=== PATIENT | male | born 1945 | race Caucasian/White ===

== ENCOUNTER 2018-01-11 18:12 | Inpatient (IN) | payer OTHER ==
--- NOTE | 2018-01-11 18:26 | EDPHY ---
H & P Stated Complaint: Abdominal pain Time Seen by Provider: 01/11/18 18:25 HPI/ROS: CHIEF COMPLAINT: Acute abdominal pain and vomiting HISTORY OF PRESENT ILLNESS: The patient presents the ED with 3 hr of acute abdominal pain and vomiting. The patient characterizes his pain as being generalized. He has no prior history of the symptoms. He denies prior history of abdominal surgery. The patient does have a history of coronary artery disease status post CABG and tricuspid valve replacement. The patient is currently anticoagulated with Coumadin. The patient does have a lower inguinal hernia. The patient denies any fever, cough or congestion. The patient denies radiation of his pain to the back shoulder or jaw. REVIEW OF SYSTEMS: A comprehensive 10 point review of systems is otherwise negative aside from elements mentioned in the history of present illness. Source: Patient - Personal History Current Tetanus/Diphtheria Vaccine: No Current Tetanus Diphtheria and Acellular Pertussis (TDAP): No - Medical/Surgical History Hx Asthma: No Hx Chronic Respiratory Disease: No Hx Diabetes: No Hx Cardiac Disease: Yes Hx Renal Disease: Yes Hx HIV/AIDS: No Hx Splenectomy or Spleen Trauma: No Other PMH: quadruple bypass hernan 11/25, 10/26 tricuspid , pacer/defib, afib - Social History Smoking Status: Never smoked - Physical Exam Exam: General Appearance: Alert, mild discomfort Eyes: Pupils equal and round no pallor or injection ENT, Mouth: Mucous membranes moist Respiratory: There are no retractions, lungs are clear to auscultation Cardiovascular: Regular rate and rhythm Gastrointestinal: Tenderness to palpation in the mid abdomen and greatest tenderness is appreciated in the right upper quadrant Neurological: A&O, normal motor function, normal sensory exam, normal cranial nerves Skin: Warm and dry, no rashes Musculoskeletal: Neck is supple nontender Extremities: symmetrical, full range of motion Constitutional: Initial Vital Signs Temperature (C) 36.6 C 01/11/18 18:16 Heart Rate 76 01/11/18 18:16 Respiratory Rate 16 01/11/18 18:16 Blood Pressure 133/89 H 01/11/18 18:16 O2 Sat (%) 94 01/11/18 18:16 O2 Delivery Mode Room Air Allergies/Adverse Reactions: No Known Allergies Allergy (Unverified 01/11/18 18:16) Home Medications: Medication Instructions Recorded Lasix 01/11/18 Lasix 01/11/18 Spironolactone 01/11/18 Warfarin Sodium 01/11/18 Medical Decision Making - Diagnostics EKG Interpretation: EKG: Complete interpretation has been separately recorded in the [email or web address] archive. Summary impression: Paced rhythm, rate 78 Imaging Results: Imaging Impressions Abdomen Ultrasound 01/11/18 18:40 Impression: 1. Cholelithiasis with multiple gallstones and circumferential gallbladder wall thickening consistent with acute cholecystitis. 2. No biliary ductal dilation. 3. Hepatomegaly and hepatic steatosis with a simple 1.5 cm cyst in the left lobe of liver. 4. Right pleural effusion. Findings and recommendations discussed with Emergency Department physician, Bjorn De La Fuente at 19:17 hour, 01/11/2018. Final report concurs with initial preliminary interpretation. ED Course/Re-evaluation: The patient presents to the ED with acute right upper quadrant pain and vomiting that began earlier today. The patient had an IV established. He received 4 mg of IV morphine and 4 mg of IV Zofran. Bedside ultrasound does demonstrate likely cholecystitis. The patient was taken for a formal ultrasound which confirms this diagnosis. The received IV Unasyn in the emergency department. The patient is noted to have relatively normal liver function test aside from a slightly elevated alkaline phosphatase. The patient's INR is currently 2.48. His creatinine is 2. The patient tells me he has a history of chronic renal insufficiency. Consultation was made with Dr. Aguila from the surgery service. The patient will be admitted by Medicine. He will be not be taken to the operating room awaiting some correction in his INR. He was given 5 mg of vitamin K subcutaneously in the emergency department. Consultation was made with Dr. Kayy Brewer from the Internal Medicine service. She will admit the patient this evening. I re-evaluated the patient at 7:30 p.m. and reviewed his laboratory testing and ultrasound. His vomiting has resolved. He is feeling much more comfortable. He still continues to have right upper quadrant tenderness. Differential Diagnosis: Differential diagnosis considered includes cholecystitis, pancreatitis, peptic ulcer disease, gastroenteritis, perforation, obstruction, appendicitis - Data Points Laboratory Results: Laboratory Results 01/11/18 18:30 01/11/18 18:30 01/11/18 01/11/18 01/11/18 18:30 18:30 18:30 WBC 9.02 10^3/uL 10^3/uL (3.80-9.50) RBC 3.60 10^6/uL L 10^6/uL (4.40-6.38) Hgb 10.4 g/dL L g/dL (13.7-17.5) Hct 32.3 % L % (40.0-51.0) MCV 89.7 fL fL (81.5-99.8) MCH 28.9 pg pg (27.9-34.1) MCHC 32.2 g/dL L g/dL (32.4-36.7) RDW 17.9 % H % (11.5-15.2) Plt Count 178 10^3/uL 10^3/uL (150-400) MPV 8.6 fL L fL (8.7-11.7) Neut % (Auto) 80.1 % H % (39.3-74.2) Lymph % (Auto) 10.0 % L % (15.0-45.0) Archuleta % (Auto) 7.9 % % (4.5-13.0) Eos % (Auto) 1.3 % % (0.6-7.6) Baso % (Auto) 0.3 % % (0.3-1.7) Nucleat RBC Rel Count 0.0 % % (0.0-0.2) Absolute Neuts (auto) 7.22 10^3/uL H 10^3/uL (1.70-6.50) Absolute Lymphs (auto) 0.90 10^3/uL L 10^3/uL (1.00-3.00) Absolute Monos (auto) 0.71 10^3/uL 10^3/uL (0.30-0.80) Absolute Eos (auto) 0.12 10^3/uL 10^3/uL (0.03-0.40) Absolute Basos (auto) 0.03 10^3/uL 10^3/uL (0.02-0.10) Absolute Nucleated RBC 0.00 10^3/uL 10^3/uL (0-0.01) Immature Gran % 0.4 % % (0.0-1.1) Immature Gran # 0.04 10^3/uL 10^3/uL (0.00-0.10) PT 26.8 SEC H SEC (12.0-15.0) INR 2.48 H (0.83-1.16) Sodium 137 mEq/L mEq/L (135-145) Potassium 3.6 mEq/L mEq/L (3.3-5.0) Chloride 92 mEq/L L mEq/L (97-110) Carbon Dioxide 30 mEq/l mEq/l (22-31) Anion Gap 15 mEq/L mEq/L (8-16) BUN 83 mg/dL H mg/dL (7-23) Creatinine 2.1 mg/dL H mg/dL (0.7-1.3) Estimated GFR 31 Glucose 110 mg/dL H mg/dL (70-100) Calcium 9.7 mg/dL mg/dL (8.5-10.4) Total Bilirubin 1.1 mg/dL mg/dL (0.1-1.4) Conjugated Bilirubin 0.6 mg/dL H mg/dL (0.0-0.5) Unconjugated Bilirubin 0.5 mg/dL mg/dL (0.0-1.1) AST 39 IU/L IU/L (17-59) ALT 34 IU/L IU/L (21-72) Alkaline Phosphatase 170 IU/L H IU/L (38-126) POC Troponin I Total Protein 7.6 g/dL g/dL (6.3-8.2) Albumin 4.4 g/dL g/dL (3.5-5.0) Lipase 152 IU/L IU/L (23-300) 01/11/18 18:28 WBC RBC Hgb Hct MCV MCH MCHC RDW Plt Count MPV Neut % (Auto) Lymph % (Auto) Archuleta % (Auto) Eos % (Auto) Baso % (Auto) Nucleat RBC Rel Count Absolute Neuts (auto) Absolute Lymphs (auto) Absolute Monos (auto) Absolute Eos (auto) Absolute Basos (auto) Absolute Nucleated RBC Immature Gran % Immature Gran # PT INR Sodium Potassium Chloride Carbon Dioxide Anion Gap BUN Creatinine Estimated GFR Glucose Calcium Total Bilirubin Conjugated Bilirubin Unconjugated Bilirubin AST ALT Alkaline Phosphatase POC Troponin I 0.01 ng/mL ng/mL (0.00-0.08) Total Protein Albumin Lipase Medications Given: Discontinued Medications Morphine Sulfate (Morphine) 4 mg IVP EDNOW ONE Stop: 06/03/18 18:35 Last Admin: 01/11/18 18:38 Dose: 4 mg Ondansetron HCl (Zofran) 4 mg IVP EDNOW ONE Stop: 01/11/18 18:35 Last Admin: 01/11/18 18:38 Dose: 4 mg Point of Care Test Results: Chemistry 01/11/18 18:28 POC Troponin I 0.01 ng/mL ng/mL (0.00-0.08) Departure - Departure Disposition: [facility] Inpatient Acute Clinical Impression: Acute cholecystitis, Renal insufficiency, Coronary artery disease, Anticoagulated on Coumadin, Right upper quadrant pain Condition: Fair Referrals: NONE *PRIMARY CARE P,. [Primary Care Provider] - As per Instructions
--- NOTE | 2018-01-11 18:31 | CPEKG ---
Heart Rate: 78 RR Interval: 769 P-R Interval: 182 QRSD Interval: 132 QT Interval: 440 QTC Interval: 502 P Damascus: 0 QRS [place]: -80 T Wave Damascus: 90 EKG Severity - ABNORMAL ECG - EKG Impression: ATRIAL-VENTRICULAR DUAL-PACED RHYTHM Electronically Signed By: Bjorn De La Fuente 11-Jan-2018 21:12:27
[2018-01-11] MEDS ORDERED: ONDANSETRON 4 MG/2 ML VIAL IVP ONE (18:34)
[2018-01-11 18:36] LABS: PLATELET COUNT 178 10^3/uL (150-400)
[2018-01-11 18:44] LABS: INR 2.48 (0.83-1.16); PROTIME(PATIENT) 26.8 SEC (12.0-15.0)
[2018-01-11] MEDS ORDERED: ONDANSETRON DISINTEGRATING 4 MG TAB ONE (18:51)
[2018-01-11] MEDS ORDERED: AMPICILLIN/SULBACTAM 3 GM in NS 100 ML IV ONE (19:18)
[2018-01-11] MEDS ORDERED: PHYTONADIONE 10 MG/ML AMP SC ONE (19:30)
[2018-01-11] MEDS ORDERED: NS 1,000 ML IV ONE (19:32)
[2018-01-11] MEDS ORDERED: PHYTONADIONE 5 MG in NS 50 ML IV ONE (19:45)
[2018-01-11] MEDS ORDERED: 1/2 NS 1,000 ML IV SCH (20:15)
[2018-01-11] MEDS ORDERED: HYDROmorphONE/DILAUDID 1 MG/ML INJ IVP PRN (20:19)
[2018-01-11] MEDS ORDERED: ONDANSETRON 4 MG/2 ML VIAL IVP PRN (20:19)
[2018-01-11] MEDS ORDERED: PROMETHAZINE HCL 25 MG/ML INJ IVP PRN (20:19)
--- NOTE | 2018-01-11 20:54 | GHP ---
[f rep st] HISTORY AND PHYSICAL DATE OF ADMISSION: 01/11/2018 CHIEF COMPLAINT: Right upper quadrant pain. HISTORY: The patient is a 72-year-old male who had acute onset of right upper quadrant pain at 1 p.m . this afternoon. He is in town visiting from [place]. They were at a restaurant at [facility] when he suddenly started not feeling well. He developed severe right upper quadrant pain with tena sea and vomiting. It escalated, and he presented to the emergency room. He has never had pain in hi s right upper quadrant before. He denies any fever. PAST MEDICAL HISTORY: 1. Coronary artery disease, status post CABG 1 year ago. 2. Tricuspid valve replacement 2 months ago. 3. Pacemaker and AICD. 4. Atrial fibrillation. 5. Chronic kidney disease. 6. Obstructive sleep apnea, on CPAP. MEDICATIONS: Please see computer's record for full details. ALLERGIES: No known drug allergies. SOCIAL HISTORY: Quit smoking 45 years ago. No alcohol. He is visiting from [place]. His daughter lives here locally, currently staying at the [facility]. Plan was to fly home tomorrow. They just arr ived on Friday. REVIEW OF SYSTEMS: Complete review of systems obtained. Review of systems negative regarding consti tutional, HEENT, GI, pulmonary, cardiovascular, , hematology, skin, muscular, endocrine, psych, exc ept for positives and negatives as noted in HPI. FAMILY HISTORY: Reviewed, noncontributory to presenting complaint. PHYSICAL EXAMINATION: GENERAL: Well-developed, well-nourished male in no acute distress. VITAL SIG NS: Temperature is 36.6, pulse 78, blood pressure 137/94, satting 98% on room air. EYES: Normal co njunctivae. Pupils react to light. ENT: Normal ears and nose. Hearing intact. Normal teeth. Tory pharynx moist. NECK: Trachea midline. No thyromegaly. CHEST: Normal effort. Lungs clear to ausc ultation bilaterally. CARDIOVASCULAR SYSTEM: Regular rate, rhythm. No murmur. No extremity edema. ABDOMEN: Soft, very tender to the right upper quadrant. No hepatosplenomegaly. SKIN: Warm, dry, intact without rash. MUSCULOSKELETAL: No cyanosis or clubbing. Strength 5/5 upper and lower extre mities. NEURO: Cranial nerves intact. Normal sensation to light touch. PSYCH: Alert and oriented x3. Normal affect. Normal judgment and insight. Normal memory. LABORATORIES: White count 9.02, hematocrit 32.3, platelets 178. Sodium 137, potassium 3.6, chloride 92, bicarb 30, BUN 83, creatinine 2.1, glucose 110. LFTs are negative. Troponins negative. INR is 2.48. EKG is paced rhythm. Ultrasound consistent with acute cholecystitis. The case was discussed with Dr. Hosea De La Fuente in the emergency room. He has spoken with Dr. Aguila and plans for surgery tomorrow if the INR is down. ASSESSMENT AND PLAN: 1. Acute cholecystitis. Surgery tomorrow morning with Dr. Aguila. Will make him nothing by carla th after midnight. 2. Atrial fibrillation. Warfarin will need to be reversed for surgery. He received vitamin K in th e emergency room. Will recheck an INR in the morning. If his INR is not at goal, he should be admin istered fresh frozen plasma. 3. Chronic kidney disease. He reports his baseline creatinine is in the high 1's ever since his car diac surgeries. Will hold Lasix tonight, but will need to be resumed postoperatively. 4. Coronary artery disease, status post coronary artery bypass graft 1 year ago. He has not had any recurrence of symptoms since his coronary artery bypass graft. I think he is okay to proceed with o peration. 5. Tricuspid valve replacement recently, 2 months ago. 6. Left breast fullness. He does have a left breast mass which he says he has noticed only over the last month. He has not gotten this evaluated yet in [place]. I do note that he is on spironolacton e so it may be gynecomastia, although it is only unilateral. I recommended he follow up with this wh en he returns to his usual physicians in [place]. Biopsy may be indicated. 7. Pacemaker and automatic implantable cardioverter-defibrillator. Appears to be functioning okay, currently in a paced rhythm. 8. Obstructive sleep apnea. Continue continuous positive airway pressure at bedtime. CODE STATUS: Full. ADMISSION STATUS: Will admit to inpatient. I anticipate greater than 2 midnights required. DEEP VENOUS THROMBOSIS PROPHYLAXIS: He is low risk given his chronic anticoagulation. Anticoagulati on can be resumed postoperatively. /[id number]/MODL
--- NOTE | 2018-01-11 20:59 | GCON ---
[f rep st] CONSULTATION DATE OF CONSULTATION: 01/11/2018 CHIEF COMPLAINT: Right upper quadrant pain with nausea and vomiting. HISTORY OF PRESENT ILLNESS: This is a 72-year-old male visiting in town from [place], who was i n his usual state of health, ate dinner last night, had breakfast this morning, was walking on [employer], walked about half a block, began to have progressive right upper quadrant pain associated wit h nausea. Describes the pain as upset stomach, points to the right upper quadrant. States that it o ccasionally radiates to his back. At its worst intensity is 5/10. It has been associated with nause a and vomiting. He denies having any fevers or chills. He has never had any complications or issues like this in the past. Of note, the patient is status post redo CABG in December of this year for a tric uspid valve repair. The patient had his initial CABG in 2016 for a quadruple bypass and is currently on Coumadin for atrial fibrillation. PAST MEDICAL HISTORY: CABG x2, first in November 2016 for quadruple bypass, most recent December of 2017 for tricuspid valve repair, has a pacemaker, and has atrial fibrillation. PAST SURGICAL HISTORY: As above, CABG x2. No abdominal surgeries. CURRENT MEDICATIONS: Include Lasix, spironolactone, and warfarin. ALLERGIES: None. FAMILY HISTORY: Noncontributory. 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 Denies illicit drug use. is at bedside. Family li ves in [facility]. REVIEW OF SYSTEMS: A full 10-point review was performed. PHYSICAL EXAMINATION: VITAL SIGNS: Temperature 36.6, blood pressure 128/94, heart rate 73, and he i s 94% on room air. CONSTITUTIONAL: He appears comfortable. He is in no acute distress. EYES: His pupils are equal, round, and reactive to light and accommodation. He has anicteric sclerae. His ex traocular movements are intact. EARS, NOSE, MOUTH, THROAT: He has moist mucous membranes. His hear ing is normal. His ears appear normal. He has no oral mucosal ulcers and has normal dentition. CAR DIOVASCULAR: The patient is paced in a normal rhythm without any appreciable murmurs. His midline s ternotomy scar is well healed. RESPIRATORY: No respiratory distress, rales, or rhonchi. He is othe rwise clear to auscultation bilaterally. GI: He has hypoactive bowel sounds. He is tender to palpa tion in the right upper quadrant with a positive Camp sign. He has no rebound tenderness or guardi ng. SKIN: Warm, normal color, no rashes. He does have a stitch abscess in his right chest secondar y to a tunneled line, which was there from his previous surgery. The remainder is unremarkable. MUS CULOSKELETAL: Full strength, no tenderness, normal joint range of motion. No effusions. NEUROLOGIC : He is alert and oriented x3. His cranial nerves 2-12 are intact. He has no weakness, no numbness . PSYCH: He is interacting appropriately. He is not anxious or encephalopathic. LYMPHATIC/HEMATOL OGIC/IMMUNOLOGIC: No cervical, groin, or supraclavicular lymphadenopathy is appreciated. LABORATORY DATA: White blood cell count is normal at 9. He does, however, have 80% neutrophils. H and H are low at 10 and 32. Platelets are 178. Chemistry is significant for an elevated creatinine at 2.1 and an elevated glucose at 110, an elevated conjugated bilirubin of 0.6, and an elevated alkal ine phosphatase at 170. His INR today is 2.48 with a PT of 26.8. Right upper quadrant ultrasound th e images of which were personally reviewed, reveal multiple layering gallstones within the gallbladde r with a thickened gallbladder wall. No pericholecystic fluid. No biliary ductal dilatation identif ied. ASSESSMENT AND PLAN: 72-year-old anticoagulated male with cholecystitis. Clinically the patient is doing well after receiving medication. He is afebrile and his white count is normal. He is, however , persistently tender in the right upper quadrant. Plan will be for admission to the medical service for gentle hydration to improve his creatinine as well as reversal of his coagulopathy given his jesica vated INR at 2.48. He has already received vitamin K in the emergency department. The patient will be n.p.o. at midnight for planned laparoscopic cholecystectomy once medically optimized likely tomorr ow. I have discussed the procedure in detail with him and his . Explained the risks, benefits, and alternatives, and he wishes to proceed. /[id number]/MODL
[2018-01-11] MEDS: CARVEDILOL 3.125 MG TAB PO SCH (21:23)
[2018-01-12 03:47] LABS: INR 2.08 (0.83-1.16); PROTIME(PATIENT) 23.4 SEC (12.0-15.0)
[2018-01-12] MEDS ORDERED: PHYTONADIONE 5 MG in NS 50 ML IV ONE (06:41)
--- NOTE | 2018-01-12 08:25 | PDMN ---
Medical Necessity Medical necessity: est los>2mn for acute cholecystitis w/RUQ pain, N/V afib on anticoagulation w/INR 2.48; admit for lap kayden 01/12/18 after reversal of warfarin; comorbid CKD w/creat 2.1 (baseline high 1's), CAD s/p CABG, recent TVR , SUSANA, PPM/AICD; [place]; per order and H&P 01/11/18
--- NOTE | 2018-01-12 08:29 | HOSPPROG ---
Hospitalist Progress Note Assessment/Plan: # acute cholecystitis - agree with cholecystectomy today - cont rocephin and flagyl # coagulopathy - received vit K 5mg last night, another 5mg this am - recheck INR before surgery # CAD s/p CABG x 1 year - stable for surgery - cont coreg # AICD/PPM # TVR # a-fib - holding Coumadin nurys-operatively - cont coreg # CKD - baseline per his report - recheck tomorrow # normocytic anemia - suspect baseline, follow post-op # SUSANA - CPAP # L breast fullness - plans f/u in [place] Subjective: pain better today; has not eaten Objective: Vital Signs Temp Pulse Resp BP Pulse Ox 36.4 C 75 19 104/74 94 01/12/18 07:33 01/12/18 07:33 01/12/18 07:33 01/12/18 07:33 01/12/18 07:33 Laboratory Results 01/12/18 03:16 01/11/18 01/12/18 01/13/18 05:59 05:59 05:59 Intake Total 1350 600 Output Total 1150 300 Balance 200 300 PT 23.4 SEC (12.0-15.0) H 01/12/18 03:16 INR 2.08 (0.83-1.16) H 01/12/18 03:[address] Aguila US reviewed ECG personally reviewed - Physical Exam Constitutional: no apparent distress, appears nourished Cardiovascular: regular rate and rhythym, systolic murmur, No irregularly irregular, No diastolic murmur Respiratory: no respiratory distress, no rales or rhonchi, clear to auscultation Gastrointestinal: soft, non-tender abdomen, No qureshi's sign, No guarding, No rebound, No distension ICD10 Worksheet Patient Problems: Problems Problem Status Onset Acute cholecystitis Acute Renal insufficiency Acute Coronary artery disease Acute Anticoagulated on Coumadin Acute Right upper quadrant pain Acute
[2018-01-12] MEDS: CARVEDILOL 3.125 MG TAB PO SCH ×2 (08:56→21:23)
[2018-01-12] MEDS: ATORVASTATIN CALCIUM 20 MG TAB PO SCH (08:56)
--- NOTE | 2018-01-12 09:24 | SOAPPROG ---
ALEX Progress Note Assessment/Plan: Assessment: 72 yo c cholecystitis - VSS, HDS - abdominal exam benign - INR is stil high, giving more Vit K now. Will type and cross - OR today Plan: 01/12/18 09:23 Subjective: feels much better Objective: Vital Signs Temp Pulse Resp BP Pulse Ox 36.4 C 75 19 104/74 94 01/12/18 07:33 01/12/18 07:33 01/12/18 07:33 01/12/18 07:33 01/12/18 07:33 Laboratory Results 01/12/18 03:16 01/11/18 01/12/18 01/13/18 05:59 05:59 05:59 Intake Total 1350 650 Output Total 1150 600 Balance 200 50 PT 23.4 SEC (12.0-15.0) H 01/12/18 03:16 INR 2.08 (0.83-1.16) H 01/12/18 03:16 ICD10 Worksheet Patient Problems: Problems Problem Status Onset Acute cholecystitis Acute Anticoagulated on Coumadin Acute Coronary artery disease Acute Renal insufficiency Acute Right upper quadrant pain Acute
[2018-01-12 09:49] LABS: INR 1.8 (0.83-1.16)
[2018-01-12] MEDS ORDERED: BUPIVACAINE 0.25% 30 ML SDV ONE (10:59)
[2018-01-12] MEDS ORDERED: EPINEPHrine 1 MG/ML INJ ONE (10:59)
[2018-01-12] MEDS ORDERED: NS 1,000 ML IV ONE (11:18)
--- NOTE | 2018-01-12 12:42 | PDHPUP ---
History & Physical Update H&P update statement: This history and physical update is based on an assessment of the patient which was completed after admission or registration (within 24 hours), but prior to the surgery/procedure. H&P update: H&P reviewed & patient examined, no change in patient's condition since H&P completed
--- NOTE | 2018-01-12 14:03 | ASMTCMCOM ---
CM Note CM Note Notes: 01/12/2018 Case Management Note Discussed pt during rounds this morning. Pt was admitted for cholecystitis with surgery planned for today. Pt lives in [place] and was vacationing in [place]. There are currently no therapy evals ordered at this time. Case Management d/c poc: Anticipating independent with follow up as directed. Case Management available if needs change. Date Signed: 01/12/2018 02:03 PM Electronically Signed By:Laure Pitt RN
--- NOTE | 2018-01-12 14:22 | PDANEPAE ---
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 Model: [id number] ANE Patient History - Allergies Allergies/Adverse Reactions: No Known Allergies Allergy (Unverified 01/11/18 18:16) - Home Medications Home medications: home medication list seen and reviewed Home Medications: Aspirin EC [Aspirin EC 81 mg (*)] 81 mg PO DAILY 01/11/18 [Last Taken 01/11/18] Atorvastatin Calcium [Lipitor 20 mg (*)] 20 mg PO DAILY 01/11/18 [Last Taken 10/26] Carvedilol [Coreg (*)] 3.125 mg PO BID 01/11/18 [Last Taken 01/11/18] Furosemide [Lasix 40 MG (*)] 80 mg PO BIDDIUR 01/11/18 [Last Taken 01/11/18] Potassium Chloride [Klor-Con 10] 20 meq PO BID 01/11/18 [Last Taken 01/11/18] Spironolactone [Aldactone 25 MG (*)] 25 mg PO DAILY 01/11/18 [Last Taken ] Warfarin Sodium [Coumadin 5MG (*)] 5 mg PO SUMOTUWEFR 01/11/18 [Last Taken 01/10] Warfarin Sodium [Coumadin 7.5MG (*)] 7.5 mg PO THSA 01/11/18 [Last Taken ] - NPO status NPO Status: no food or drink >8 hours NPO Since - Liquids (Date): 01/11/18 NPO Since - Liquids (Time): 20:00 NPO Since - Solids (Date): 01/11/18 NPO Since - Solids (Time): 00:00 - Anes Hx Anes Hx: no prior problems - Smoking Hx Smoking Status: Never smoked - Alcohol Use Alcohol Use: Rarely ANE Labs/Vital Signs - Labs Result Diagrams: 01/11/18 18:30 01/12/18 03:16 - Vital Signs Blood Pressure: 103/72 Heart Rate: 85 Respiratory Rate: 16 O2 Sat (%): 98 Height: 177.8 cm Weight: 86.636 kg ANE Physical Exam - Airway Neck exam: FROM Mallampati Score: Class 1 - Pulmonary Pulmonary: no respiratory distress, clear to auscultation - Cardiovascular Cardiovascular: regular rate and rhythym - ASA Status ASA Status: III
[2018-01-12] MEDS ORDERED: LIDOCAINE 2% 5 ML SDV ONE (14:41)
[2018-01-12] MEDS ORDERED: fentaNYL 250 MCG/5 ML INJ ONE (14:41)
[2018-01-12] MEDS ORDERED: ONDANSETRON 4 MG/2 ML VIAL ONE (14:41)
[2018-01-12] MEDS ORDERED: PROPOFOL 200 MG/20 ML VIAL ONE (14:41)
[2018-01-12] MEDS ORDERED: ROCURONIUM 50 MG/5 ML VIAL ONE (14:41)
[2018-01-12] MEDS ORDERED: SUGAMMADEX SODIUM 200 MG/2 ML VIAL IVP ONE (15:49)
--- NOTE | 2018-01-12 16:14 | POSTOPPROG ---
Post Op Note Date of Operation: 01/12/18 Surgeon: Triston Aguila Anesthesiologist: Warm Anesthesia: GET(General Endotracheal) Pre-op Diagnosis: Cholecystitis Post-op Diagnosis: acute on chronic cholecystitis Procedure: lap kayden Findings: edematous wall, adhesions to omentum Inf/Abcess present in the surg proc area at time of surgery?: No EBL: Minimal Total fluids administered: 1000cc NS washout Specimen(s): GB
[2018-01-12] MEDS ORDERED: fentaNYL 100 MCG/2 ML INJ IVP PRN (16:22)
[2018-01-12] MEDS ORDERED: HYDROmorphONE/DILAUDID 2 MG/ML INJ IVP PRN (16:22)
[2018-01-12] MEDS ORDERED: ONDANSETRON 4 MG/2 ML VIAL IVP PRN (16:22)
[2018-01-12] MEDS ORDERED: NALOXONE HCL 0.4 MG/ML INJ IVP PRN (16:22)
[2018-01-12] MEDS ORDERED: PROMETHAZINE HCL 25 MG/ML INJ IVP PRN (16:22)
--- NOTE | 2018-01-12 16:24 | POSTANESTH ---
Post Anesthetic Evaluation Cardiovascular Status: Normal, Stable Respiratory Status: Normal, Stable Level of Consciousness/Mental Status: Can Participate in Eval, Mildly Sleepy, Arousable Pain Control: Adequate, Prn Tx Ordered Nausea/Vomiting Control: Adequate, Prn Tx Ordered Complications Possibly Related to Anesthesia: None Noted
--- NOTE | 2018-01-12 16:54 | GOP ---
[f rep st] OPERATIVE REPORT DATE OF OPERATION: 01/12/2018 SURGEON: Triston Aguila MD BREAKER OFF: None. ANESTHESIA: General endotracheal. ANESTHESIOLOGIST: Rosales Sanchez MD. PREOPERATIVE DIAGNOSIS: Acute cholecystitis. POSTOPERATIVE DIAGNOSIS: Acute on chronic cholecystitis. PROCEDURE PERFORMED: 1)Laparoscopic cholecystectomy. 2) Debridement right chest wound, skin only 1cm squared FINDINGS: Very edematous gallbladder wall with multiple omental adhesions. Critical view obtained. Stitch abscess debrided in right upper chest, old stitch removed SPECIMENS: Gallbladder. ESTIMATED BLOOD LOSS: 20 cc. DESCRIPTION OF PROCEDURE: The patient was greeted in the preoperative suite. Once again, risks, benefits, and alternatives were discussed. The consent was then signed. He was then brought back to the operative suite, placed on the OR table in the supine position. After all anesthesia machines were on and functioning, a [employer] time-out was performed. After successful induction of general anesthesia, the patient's abdomen was prepped and draped in the typical sterile fashion. I entered the abdomen via an infraumbilical cutdown through which the Veress needle was passed. I achieved a pneumoperitoneum to 15 mmHg CO2 which was well tolerated by the patient. Through this site, I inserted a 12 mm Visiport. Once successfully in the abdomen, I inserted 3 additional 5 mm trocars, one in the subxiphoid, two in the right upper quadrant, all under direct visualization. I then retracted the gallbladder over the liver edge. I did have to aspirate its contents in order to successfully retract it. The gallbladder had a thick very edematous wall with multiple omental adhesions. These were taken down bluntly. I dissected out the infundibulum and identified 2, and only 2, structures leading toward the gallbladder. I first clipped the artery and divided it. I then clipped the duct and divided it. I then took the gallbladder off the liver bed using electrocautery. It was placed in an EndoCatch bag and removed. I irrigated the right upper quadrant with 1 L normal saline noting clear effluent in the suction canister. I identified my clips, which were hemostatic and in appropriate position. The liver bed was also noted to be hemostatic. I did use Leonor in the liver bed as an additional adjunct for hemostasis. Local anesthesia was then infiltrated into all port sites which were then removed. I evacuated my pneumoperitoneum. I closed my infraumbilical port site with an interrupted 0 Vicryl stitch noting excellent fascial reapproximation. The skin was closed with Monocryl. I then turned my attention toward the patient's right chest, which was prepped and draped in typical sterile fashion. I removed the previous scab, which was there. Using blunt dissection I identified the old stitch which was completely removed. I infiltrated the area with local anesthesia. Hemostasis was obtained with gentle pressure. A sterile dressing was placed. The patient was then extubated in the operative suite and taken to the PACU in satisfactory condition. DRAINS: None. COUNTS: All counts were reported as correct x2. /[id number]/MODL MTDD
[2018-01-12] MEDS: ACETAMINOPHEN 325 MG TAB PO PRN ×2 (17:47→21:23)
[2018-01-13] MEDS: ACETAMINOPHEN 325 MG TAB PO PRN ×2 (01:08→07:03)
[2018-01-13 07:21] VITALS: BP 110/74
[2018-01-13] MEDS: ATORVASTATIN CALCIUM 20 MG TAB PO SCH (08:47)
[2018-01-13] MEDS: CARVEDILOL 3.125 MG TAB PO SCH (08:48)
--- NOTE | 2018-01-13 09:11 | SOAPPROG ---
[facility] Progress Note Assessment/Plan: Assessment: 72 yo c cholecystitis - VSS, HDS - looks good, pain is well controlled - Reg diet - ok to restart coumadin and all other home meds today - ok for dc today, will fu with PCP in [place] Plan: 01/12/18 09:23 01/13/18 09:10 Subjective: looks good, feels well Objective: Vital Signs Temp Pulse Resp BP Pulse Ox 36.6 C 75 16 110/74 94 01/13/18 07:19 01/13/18 07:19 01/13/18 07:19 01/13/18 07:19 01/13/18 07:19 Laboratory Results 01/13/18 03:42 01/13/18 03:42 01/12/18 01/13/18 01/14/18 05:59 05:59 05:59 Intake Total 1350 2700 Output Total 1150 1145 250 Balance 200 1555 -250 PT 21.0 SEC (12.0-15.0) H 01/12/18 09:36 INR 1.80 (0.83-1.16) H 01/12/18 09:36 ICD10 Worksheet Patient Problems: Problems Problem Status Onset Acute cholecystitis Acute Anticoagulated on Coumadin Acute Coronary artery disease Acute Renal insufficiency Acute Right upper quadrant pain Acute
--- NOTE | 2018-01-13 10:57 | GDS ---
[f rep st] DISCHARGE SUMMARY ALL PROCEDURES: Laparoscopic cholecystectomy performed by Dr. Aguila on 01/12/2018. ALL DIAGNOSES: 1. Acute cholecystitis. 2. Coronary artery disease, status post coronary artery bypass graft about 1 year ago. 3. Tricuspid valve replacement about 2 months ago. 4. Chronic kidney disease with baseline creatinine between 1.8 and 1.9. 5. Atrial fibrillation on chronic Coumadin, rate controlled. HOSPITAL COURSE: 72-year-old man who presented with acute cholecystitis. He underwent uneventful la paroscopic cholecystectomy. He is recovering well postoperatively, eating with no significant abdomi nal pain and normal vitals. He has been seen by Dr. Aguila who agrees that he is stable to be di scharged. I have given him 2 additional days of Augmentin. He has atrial fibrillation. He is on chronic Coumadin. This was held perioperatively. He did recei ve some vitamin K. He has been cleared by Dr. Aguila to restart his Coumadin today. I have give n him this information. He will continue his Coreg as well. He has coronary artery disease. He had a bypass about 1 year ago. He has not had any chest pain per ioperatively. This is stable, chronic, and well controlled. Chronic kidney disease. His creatinine has been at described baseline between 1.9 and 2.1. He had some left breast fullness. He will follow up at home for this. BILLING: I spent more than 30 minutes on the day of discharge coordinating care. /[id number]/MODL
== END 2018-01-13 10:52 | disposition home or self-care (01) | DRG 419 ==
LOC: F2W 20:29
PROVIDERS: ADMIT Internal Medicine; ATTEND Internal Medicine
PROC: 0FT44ZZ Resection of Gallbladder, Percutaneous Endoscopic Approach (ICD-10-PCS; principal; 2018-01-12 12:30)
DX: K80.12 Calculus of gallbladder with acute and chronic cholecystitis without obstruction (principal); I25.10 Atherosclerotic heart disease of native coronary artery without angina pectoris; I48.91 Unspecified atrial fibrillation; N18.9 Chronic kidney disease, unspecified; G47.33 Obstructive sleep apnea (adult) (pediatric); N63.20 Unspecified lump in the left breast, unspecified quadrant; R79.1 Abnormal coagulation profile; Z95.1 Presence of aortocoronary bypass graft; Z95.2 Presence of prosthetic heart valve; Z79.01 Long term (current) use of anticoagulants; Z95.810 Presence of automatic (implantable) cardiac defibrillator; Z87.891 Personal history of nicotine dependence
CPT/HCPCS: 84484-PO; 96374; J0171; J0295; J0696; J2270; J2405; J2704; J3010; J3430